=== PATIENT | female | born 1945 | race Caucasian/White ===

== ENCOUNTER 2025-05-04 07:33 | Day surgery (SDC) | payer OTHER, SELFPAY ==
[2025-04-21 08:47] VITALS: BMI 42.9
[2025-05-04] VITALS (13 sets, daily range): BP systolic 102–174; BP diastolic 56–77; PULSE 63–93; RESP 11–18; TEMP 35.5–36.7; O2SAT 93–100; BMI 42.6
--- NOTE | 2025-05-04 | DI.RAD.S_ITS ---
PROCEDURE: XR PELVIS 1-2V INDICATIONS: RIGHT TOTAL HIP INTEROP TECHNIQUE: Intra-operative view of the pelvis and hip acquired. COMPARISON: None. FINDINGS: Bones: Intraoperative devices prior to placement of arthroplasty prostheses are in expected positions. No fractures or suspicious bony lesions. Soft tissues: Overlying surgical retractors are present, along with other intraoperative changes. IMPRESSION: Unremarkable intraoperative right hip arthroplasty radiographs Approved by: Sundeep Pizarro M.D. on 05/04/2025 at 16:47
--- NOTE | 2025-05-04 06:00 | DI.RAD.S_ITS ---
PROCEDURE: XR HIP W PEL IF DONE RT 2V INDICATIONS: DANIELA TECHNIQUE: AP pelvis and lateral view of the hip acquired. COMPARISON: [facility], CR, XR PELVIS WITH LATERAL HIP RIGHT, 02/12/2025, 13:48. [facility], CR, XR PELVIS 1-2V, 05/04/2025, 12:05. FINDINGS: Bones: Patient is status post right total hip arthroplasty, with hardware components in expected positions. The hip joint appears congruent. The visualized bony structures appear intact. Remote prior left hip arthroplasty appears unchanged. Mildly sclerotic appearance of the sacroiliac joints bilaterally. Soft tissues: Overlying postoperative changes are noted. No suspicious soft tissue densities. IMPRESSION: Expected post-operative appearance of a right total hip arthroplasty. Approved by: Ze Ahmadi M.D. on 05/04/2025 at 14:20
--- NOTE | 2025-05-04 08:52 | SUR.OPER ---
Lateral on padded OR bed. Gel axillary roll. Arms secured on padded armboard with pillow supporting top arm. Padded hip positioner braces x4 - anterior and posterior chest and pelvis. Additional gel pad used anterior pelvis. Gel pad under bottom leg from knee to foot and secured with tape over sheet.
[2025-05-04] MEDS: VANCOMYCIN 1,000 MG/200 ML PIGGYBACK 200 MG IV (09:29)
[2025-05-04] MEDS: CELECOXIB 200 MG CAPSULE PO (09:29)
[2025-05-04] MEDS: ACETAMINOPHEN 325 MG TABLET 975 MG PO (09:29)
[2025-05-04] MEDS: LACTATED RINGERS 1,000 ML 42 ML IV (09:30)
[2025-05-04] MEDS: FAMOTIDINE 20 MG/2 ML VIAL IV (09:44)
--- NOTE | 2025-05-04 10:37 | PM.PREOP ---
Pre-operative Note Interval Note History & Physical reviewed/Exam performed by Physician: Yes Changes to H&P: No
--- NOTE | 2025-05-04 10:38 | P.OP_ITS ---
Operative Date/Time/Diagnoses Date of procedure: 05/04/25 Time of procedure: 11:10 Pre-op diagnosis: right hip OA Post-op diagnosis: same Procedure & Clinicians Procedure: Right total hip arthroplasty posterior approach Same procedure(s) as scheduled: Yes Indications: The patient has had progressively worsening right hip pain with radiographic changes consistent with arthritis. Non-operative management has failed and the patient has requested total hip replacement. The risks, benefits and alternatives to surgery were discussed with the patient prior to proceeding. Risks discussed included, but were not limited to, failure to relieve pain, leg length discrepancy, dislocation, stiffness, infection, nerve damage, deep venous thrombosis, pulmonary embolism, stroke, coma, heart attack, permanent paralysis and , as well as the potential need for eventual revision of the prosthetic. Surgeon: Nika Brandt Eviscerator: Philipp Martinez Anesthesia Type: General and Spinal Operative Notes Findings: Severe left hip OA with marked destruction of the acetabulum, soft but acceptable bone, adequate stability Closure Type: primary Specimen(s): none sent Prosthetic devices, grafts, tissues, transplants, or devices: Brandt and nephew R3 52, neutral poly liner, one 6.5 mm screw, polar stem stand miguel angel offset size 3 with collar, 36 x -3 cobalt chrome head Applied: none Estimated Blood Loss (mL): 250 Blood products transfused: none Procedure in detail: The patient was seen in the pre-operative area, where the patient identified the right hip as the operative site and this was marked with my initials. The patient received pre-operative antibiotics and was taken to the operating room and placed on the operative table in the left lateral decubitus position after satisfactory anesthesia. A night time babysitter out was performed. The right leg was prepared from the ankle to the iliac crest with ChloroPrep in the usual fashion and draped through sterile drapes. The PA was used during the procedure and was essential for intraoperative retraction and safe implantation of the components. The hip was approached through an approximately 24 cm incision centered over the greater trochanter and curving gently posteriorly as it went proximally. This was carried sharply to the fascia bryant, which was divided and retracted with a self retaining retractor. The trochanteric bursa was excised with care being taken to avoid the sciatic nerve, which was identified and protected throughout the case. The short external rotators were incised and the capsulomuscular flap was raised and tagged for later repair. The hip was dislocated, and a femoral neck osteotomy performed approximately 15 mm above the lesser trochanter. Retractors were placed around the femur. The canal was opened with a box cutting osteotome, followed by a T handled reamer and a lateralizing reamer. The starter broach was then used, followed by sequential broaching until there was good stability of the broach in the femur. Retractors were placed to expose the acetabulum. The labrum and central soft tissues were removed. Reaming was performed initially going up in 2 mm increments, then 1 mm increments until good bite was obtained with an odd sized reamer. The cup 1 mm larger than the last reamer was then inserted using the appropriate anteversion guides. It was further stabilized with a 6.5 mm screw. A trial neutral liner was placed. The broach was placed in the canal. A trial head and neck were then placed and the hip relocated and checked for leg length and stability. An intraoperative film confirmed the component position and no evidence of fracture. The patient was stable in the position of sleep, of squatting, and could be put through a range of motion with 45 degrees internal rotation without dislocation. At 90 degrees flexion, internal rotation to 70? was possible before dislocation. This was felt to be satisfactory and the appropriate components were opened, and the trials were removed. The acetabular liner was impacted into position. The final stem was then impacted into the prepared femoral canal. A brief Betadine soak was performed while trialing with head options. The hip was meticulously irrigated with normal saline. Finally the femoral head was impacted onto the stem. The acetabulum was cleared of all material and the hip relocated one final time. The capsulomuscular flap was then repaired to the greater trochanter though an awl hole using the tag sutures. The short external rotators were repaired with a nonabsorbable suture. The fascia bryant was closed with Vicryl. The subcutaneous layer was closed with barbed sutures and skin jason. A shen dressing was applied and the patient was taken to recovery having tolerated the procedure well. Complications: none Post-operative Condition: stable Disposition: Acute Care Plan for aftercare: The patient will be maintained on a standard total hip replacement protocol with weight bearing as tolerated and posterior hip precautions. The patient will receive Aspirin and sequential compression devices for DVT prophylaxis. The patient will be discharged home when safe for the home environment.
[2025-05-04] MEDS: TRANEXAMIC ACID 1,000 MG VIAL 1000 MG INJ ×2 (11:15→12:53)
[2025-05-04] MEDS: BUPivacaine 0.25% W/ EPI (PF) 30 ML VIAL 60 ML INJ (11:45)
[2025-05-04] MEDS: SODIUM CHLORIDE IRRIG SOLUTION 250 ML, EPINEPHrine 1 MG IRR (11:48)
--- NOTE | 2025-05-04 11:53 | SUR.OPER ---
DUE TO PATIENTS ALLERGY TO TOPICAL IODINE DR HILL ORDERED 4 OZ HYDROGEN PEROXIDE FOR WOUND APPLICATION DURING CLOSURE
--- NOTE | 2025-05-04 12:28 | SUR.OPER ---
ALL IMPLANTS CONFIRMED BY SURGEON BEFORE IMPLANTING
--- NOTE | 2025-05-04 15:03 | OT.IPNOTE ---
Checked with pt as just came up from sx. Pt states still groggy and not ready to get up. Notified nursing as pt needing to be changed. Able to give pt posterior hip folder and to check on pt tomorrow.
[2025-05-04] MEDS: ACETAMINOPHEN 325 MG TABLET 650 MG PO ×2 (15:48→19:51)
[2025-05-04] MEDS: LACTATED RINGERS 1,000 ML 100 ML IV (15:48)
--- NOTE | 2025-05-04 16:23 | PT-IP ANOTE ---
Pt eval order received. EMR reviewed. Checked on pt and pt stated that she is still numb on her legs and that she is not ready for PT. daughter in room and agreed to come in at ~ 9 am for possible caregiver training tomorrow.
[2025-05-04] MEDS: ONDANSETRON 4 MG ODT PO (16:42)
[2025-05-04] MEDS: DOCUSATE 100 MG CAPSULE PO (20:03)
[2025-05-04] MEDS: ASPIRIN EC 81 MG TABLET PO (20:03)
[2025-05-04] MEDS: INSULIN LISPRO 100 UNIT/ML 3ML VIAL SUBCUT (20:27)
[2025-05-05 04:31] LABS: Hematocrit 34.6 % (36-46); Hemoglobin 11.7 g/dL (12.0-16.0)
--- NOTE | 2025-05-05 07:30 | P.DS_ITS ---
History of Present Illness History of Present Illness Date Patient Seen: 05/05/25 Time Patient Seen: 07:31 Chief complaint: Right Total Hip Arthroplasty Narrative: She notes she was doing well minimal pain. Discharge Providers Provider Discharge Date: 05/05/25 Primary care physician: Angel Craft MD Consults: 05/04/25 06:00 Consult to Anesthesiology Routine Comment: Consulting Provider: Anesthesiologist Reason for consultation: Regional block for post operative pain control Has provider been notified: No 05/04/25 14:14 Consult to Discharge Planning Routine Comment: Consult to Occupational Therapy Evaluate & Treat Comment: Physician Instructions: Evaluate and treat Consult to Physical Therapy Evaluate & Treat Comment: Physician Instructions: post op DANIELA protocol Discharge provider: Nika Brandt MD Summary Hospital Course Discharge Diagnosis: Right hip OA. Right total hip arthroplasty Hospital Course: She underwent a right total hip arthroplasty. She tolerated the procedure without difficulty. She was mobilized with physical therapy and felt to be safe for discharge to home. Status at Discharge Cognitive/behavioral status at discharge: oriented Functional status at discharge: uses cane/walker Overall status at discharge: patient is progressing back to baseline Exam Vital Signs (past 8 hours): Oxygen Delivery Method Room Air Oxygen Flow Rate 0 Narrative Exam Narrative: She was alert she is oriented she is sitting in a chair she was resting calves are soft bilaterally her dressings intact she was able to fire toe flexors and extensors Objective Labs 05/05/25 04:06 Labs: Laboratory Results - last 24 hr 05/04/25 05/04/25 05/04/25 08:56 14:03 16:46 Hgb Hct POC Whole Bld Glucose 128 H 164 H 179 H 05/04/25 05/05/25 20:11 04:06 Hgb 11.7 L Hct 34.6 L POC Whole Bld Glucose 214 H [facility] Medical History (Updated 04/27/25 @ 09:51 by Emiliana Pradhan RN) Anemia History of recurrent UTIs CKD (chronic kidney disease) stage 3, GFR 30-59 ml/min Hearing loss Osteoarthritis HLD (hyperlipidemia) Hyperkalemia due to angiotensin converting enzyme inhibitor (NALDO-I) Edema History of anemia HTN (hypertension) Diabetes type 2 Surgical History (Updated 04/21/25 @ 08:59 by Emiliana Pradhan RN) Hx of tonsillectomy Hx of colonoscopy Hx of bilateral cataract extraction (2013) Hx of umbilical hernia repair History of hysterectomy History of History of total left hip replacement (09/12/15) Social History household members: none Smoking Status: Never smoker alcohol intake: never Discharge Assessment & Plan Assessment and Plan Assessment: Doing well after right total hip arthroplasty. Plan of Treatment: Discharge to home. Discharge Plan Discharge Plan Patient Disposition: Home Provider Discharge Comment: DC pending PT approval Discharge orders & Medications Discharge Orders: Discharge (Order); Ordered 05/05/25 Ordered By: Nika Brandt Prescriptions: Continued atorvastatin 80 mg tablet 80 mg PO DAILY acarbose 50 mg tablet 50 mg PO 3XD Rx Instructions: with meals amlodipine 5 mg tablet 5 mg PO DAILY calcitriol 0.25 mcg capsule 0.25 mcg PO QMWF glipizide 10 mg tablet extended release 24hr 10 mg PO QAM Jardiance 10 mg tablet 10 mg PO DAILY ferrous sulfate 325 mg (65 mg iron) tablet 325 mg PO DAILY torsemide 10 mg tablet 10 mg PO DAILY PRN (Reason: edema) Changed aspirin [Adult Low Dose Aspirin] 81 mg tablet,delayed release (DR/EC) 81 mg PO BID Qty: 90 0RF Follow up/Referrals: Angel Craft MD [Primary Care Provider, Family Practice] Diet/Activity/Treatments Diet: Diet as Tolerated Activity: Weightbear as tolerated. Ambulate with assistive devices. Avoid falls. Avoid high hip flexion. Cold/Heat Therapy: Ice for up to 20 minutes over surgical site every hour. Skin/Wound/Dressing Care Skin care: Okay to shower. Report to your healthcare provider any signs of infection, such as:: chills, fever, night sweats, increased pain, unusual drainage and unusual redness Dressing: Keep dressing clean and dry. If if dressing becomes dirty or disrupted change. Visit Report/Discharge Packet Instructions: DI for Hip Replacement, DI for Prescription Opioid Use Stand Alone Forms: Patient Portal/API, Surgery Discharge Print Language: Cameroonian Discharge Data Primary Care Provider: Angel Craft Attending Provider: Nika Brandt
[2025-05-05] MEDS: ACETAMINOPHEN 325 MG TABLET 650 MG PO (07:57)
[2025-05-05 08:00] VITALS: BP 142/73; PULSE 64; RESP 16; TEMP 36.2; O2SAT 98
[2025-05-05] MEDS: FERROUS SULFATE 325 MG TABLET PO (08:05)
[2025-05-05] MEDS: ATORVASTATIN 20 MG TABLET 80 MG PO (08:05)
[2025-05-05] MEDS: ASPIRIN EC 81 MG TABLET PO (08:06)
[2025-05-05] MEDS: DOCUSATE 100 MG CAPSULE PO (08:06)
--- NOTE | 2025-05-05 08:35 | CM.DANOTE ---
Initial DCP Assessment Note. Review EMR and PT Interview. Met with patient at bedside to discuss discharge needs.PT is alert x 4 sitting up in chair. No acute distress. Patient lives independently with DME alone in her own home. PT's Brittney beebe, from [place] will be transporting PT home upon discharge and will be staying with PT for the next 10 days. Payor: SARAI Suárez PCP: Angel Fay Summary & Plan: Post OP Elective Right total Hip Replacement. Plan: discharge to home today after Physical Therapy eval Discharge Planning/Care Management CM Discharge Assessment Start: 05/04/25 14:18 Freq: Status: Active Protocol: Document 05/05/25 08:29 SM (Rec: 05/05/25 08:33 SM [id number]) Discharge Planning Assessment Assigned Discharge Shauna SOMMER CM Child Welfare Social Worker Provider Dr. Brandt [facility],Medicare Advance Directives? Yes Advance Directives No on File History Provided By Patient Has Patient been No admitted in last 30 days? Prior Living House Arrangements Comment PT's Brittney beebe, will be staying with PT for the next 10 days. Household Members none Type of Drives own vehicle transporation used prior to admit Needs Assistance Bathing,Grooming,Meal Prep,Home Chores / Shopping With Caregiver for No Another DME Already Rented / Bath Bench,FWW / Walker,Cane Owned Barriers to No Discharge Discharge Plan Home Transportation Brittney beebe, will transport home. # [phone] Arrangement Referrals Initiated None needed Review Status In Process Please Provide Date 05/05/25 Initial DC Assessment Was Performed Next Review Type Continued Stay Review Pre-Anesthesia Assessment Start: 04/21/25 08:47 Freq: Status: Active Protocol: Document 04/21/25 08:47 CAB (Rec: 04/21/25 09:33 CAB [id number]) Pre-Anesthesia Assessment PAC Comment Phone assess 04/21/25 Patient Information Phone Assessment Reviewed Via Assessment Completed Patient With Diagnostic Results BMP/CMP,CBC,EKG Comment Outside labs/EKG Primary Care Angel Craft Provider Seen Specialist in Yes Last 12 Months Specialist Seen Cra Officer,Orthopedist Comment Nephrology visit 04/23/25 scanned and in surgery folder Primary Language Yemeni Corporate Planning Manager Required No Height 162.56 cm Weight 113.398 kg Body Mass Index (BMI 42.9 ) Hearing Ability Hearing Impaired,Use of Hearing Aid Visual Assist Glasses Barriers to Learning Visual Hx Anesthesia No Reactions Hx Family Anesthesia No Reaction Hx Malignant No Hyperthermia Hx Blood No Transfusions Anesthesia Review No Requested Business Database Analyst No alcohol intake never Smoking Status Never smoker Substance Use Type [ does not use #R] Pain Present Pain Reported Musculoskeletal Abnormal Gait,Difficulty Walking,Joint Pain Symptoms History of Falling ( Yes Recent or History of ) Patient is No completely paralyzed or completely immobile Prosthesis or Front Wheel Walker Orthotic Device Mental Status Oriented to own ability Is patient on oxygen No ? Does patient have No CALDERON/SOB Hx Sleep Apnea No Currently Taking a No Beta Laura Can You Climb a Yes Flight of Stairs Without SOB Hx Chest Pain No Hx SOB No Hx Syncope or No Dizziness Anti-Coagulant No Therapy Has a Rodding Machine Tender No Cardiac Testing No Hx Pacemaker/ICD No Pacemaker Rep No Required? Cardiac Clearance No Received Dysphagia No Gastrointestinal None Symptoms Bladder Pattern Urgency Urinary Catheter No Present Hx Urinary Self No Catheterization Diabetes Yes HgbA1C 6.9 Date 02/15/25 Patient No Lactating No Hx Drug Resistant No Organism Presence of external Yes: Left hip prosthesis, bilat eye IOLs, hearing aids or internal medical devices? Marital Status / Lives With none Current Living House Arrangements Number of Floors ( Two Floors Floors) Support System Child/Children Does the Patient Yes: Daughter will stay w/pt to assist with care at [place] Have Assistance After Surgery Patient Discharge Return Home Plan Description Comment Pt advised same day surgery per surgeon Feels Safe in Yes Current Environment Been Physically Hurt No or Threatened By a Person in Current Environment Do you have thoughts None of harming yourself or others? Are you currently No considering suicide? Do you have a plan No Plan to hurt yourself or others? Do You Have Any No Spiritual Beliefs That May Affect Your HC Choices? Do You Have Any No Cultural Practices That May Affect Your HC Choices? Comment [employer] Who Can We Speak to Family, friends About Patient's Care Identifying Code for Declines to issue Release of Patient Information Health Care Proxy/ Bess (daughter) Wang (son) Next of Kin Health Care Proxy Bess: [phone] Wang: [phone] Phone Number Emergency Contact Bess (daughter) Wang (son) Name Emergency Contact Bess: [phone] Wang: [phone] Phone Number Advance Directives? Yes Advance Directives No on File Requested Patient Yes Bring Advanced Directives DOS Power of Evening Anchor Yes Power of Evening Anchor Bess (daughter) Wang (son) Name Power of Evening Anchor Bess: [phone] Wang: [phone] Phone Number PAC Instructions Assistance for 24 hours post-op,Diabetes instructions, Do not shave/clip surgical site,Durable medical equipment,Medications to take/avoid,Nasal antibiotic,No ETOH/petroleum product on skin DOS,NPO,Post-op transportation,Pre-surgical wash,Sturdy shoes/ comfortable clothes,Do not bring valuables and remove jewelry
--- NOTE | 2025-05-05 08:50 | PT.IIE ---
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) Hx of bilateral cataract extraction (2012) Hx of colonoscopy Hx of tonsillectomy Hx of umbilical hernia repair Medical History (Last Updated 04/27/25 @ 09:51 by Emiliana Pradhan RN) Anemia CKD (chronic kidney disease) stage 3, GFR 30-59 ml/min Diabetes type 2 Edema Hearing loss History of anemia History of recurrent UTIs HLD (hyperlipidemia) HTN (hypertension) 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 Prior Functional Pt's daughter to stay with her for 10 days to assist. Level (Other details ) Social History Household Members none Living Arrangements House Number of Floors ( One Floor Floors) Number of Stairs To 3 steps with wide bilateral rails and can only hold on Enter/Railing? to just one rail at a time Home Environment Standard Height Toilet,Walk in Shower,Built-In Shower Seat Home Equipment Front Wheel Walker,Four Wheel Walker,Bedside Commode, Raised Toilet Seat w/Armrests,Hand Held Shower,Artist Representative, Grab Bars In Shower Additional Social pt's daughter will stay with her for ~ 2 weeks to History Comment assist pt pt sleeps on her lift recliner chair M2 PT-IP Current Condition Start: 05/05/25 13:16 Freq: NEEDED Status: Active Protocol: Document 05/05/25 08:50 AB (Rec: 05/05/25 13:33 AB [id number]) Physical Therapy Current Condition Current Condition Evaluation Date 05/05/25 Treatment Diagnosis s/p R DANIELA posterior; difficulty in walking Onset Date 05/04/25 M3 PT-IP Subjective Start: 05/05/25 13:16 Freq: NEEDED Status: Active Protocol: Document 05/05/25 08:50 AB (Rec: 05/05/25 13:33 AB [id number]) Subjective Physical Therapy Visit Type Type Initial Evaluation Visit Start Time 08:50 Visit Stop Time 10:20 Notes talked to ortho doctor yesterday and clarified with dr. garces regarding hip precautions and agreed to no more than 90 deg of hip flexion and not 70 deg. Number of CALL CENTER REPRESENTATIVE Visits 0 Physical Therapy Visit Comments Patient Comments agreeable to do PT Therapy Pain Assessment Pain When Pain Assessed At Rest Pain Present Pain Present Pain Reported Location Right Hip Intensity 2 Scale Used Numeric (0 - 10) Pain Management Distraction,Modification of Treatment,Re-positioning, Techniques Timing of Activity with Medications M4 PT-IP Mobility and Gait Start: 05/05/25 13:16 Freq: NEEDED Status: Active Protocol: Document 05/05/25 08:50 AB (Rec: 05/05/25 13:33 AB [id number]) PT-Transfer Assessment Sit to and From Stand Sit to and from Minimal Assistance,1 Person Assistance,Use of Upper Stand Extremities Equipment Transfer Assistive Gait Belt,Front Wheeled Walker Device Orthotic/Prosthetic No Devices or Brace: Transfers Transfer Destination Bed Transfer Technique ambulated Transfer Ability Level of Assist Contact Guard Assistance,1 Person Assistance,Use of Upper Extremities Comments Mobility Comments pt sitting on the chair and daughter in room with pt. obtained PLOF and home set up. educated pt and daughter regarding R hip posterior precautions. pt able to recall precautions. sit to stand from chair min A and max cues for techniques and precautions. pt presents with increase R LE IR and ankle inversion. cued to correct. pt sat back on chair and mod A for controlled descent to chair. educated pt on safety and techniques for sit to stand. caregiver training. educated daughter on how to use safety belt and how to assist pt. daughter was able to put safety belt on. assisted pt with sit to stand and pt ambulated in the hallway using FWW ~ 75 ft CGA. stair climbing training: educated pt and daughter on how to complete stairs. pt completed up/down steps holding on to R rail with B hands mod A and max cues. pt completed 2 sets requiring max cues. pt can be impulsive and decrease carryover with safety and precautions. assisted pt back to her room. sit to stand from w/c min A and max cues and ambulated to the chair using fWW CGA. educated pt on sit<>stand techniques: pt completed sit< >stand x 3 sets min A and max cues. positioned pt on the chair. call light and table placed within reach. pt and daughter without further concerns. Gait Assessment Gait Gait Assistance Contact Guard Assist Required: Distance (Feet) 75 Able to Maintain Yes Weight Bearing Status During Gait Assistive Devices Assistive Device Gait Belt,Front Wheeled Walker Orthotic/Prosthetic No Devices or Brace: Gait Deviations General Gait Pattern Decreased Stride Length,Decreased Feet Clearance Factors Limiting Gait Function Factors Limiting Decreased Activity Tolerance,Decreased Strength, Gait Function Difficulty Following Directions,Limited Range of Motion ,Pain,Poor Balance,Poor Safety Awareness Stair Climbing Assessment Evaluation Level of Assist On Moderate Assistance Stairs Devices Stair Climbing Right Railing Assistive Devices Technique/Endurance Stair Climbing Ascend and Descend Direction Stair Climbing Step to Step Technique Number of Steps 3 Climbed Query Text: Stair Climbing Set # 2 Repetitions (reps) PT-Balance Assessment Sitting Balance and Reactions Static Sitting Normal Balance Ability Dynamic Sitting Good Balance Ability Standing Balance and Reactions Static Standing Fair Balance Ability Dynamic Standing Fair Balance Ability Device Used FWW M5 PT-IP Objective Assessments Start: 05/05/25 13:16 Freq: NEEDED Status: Active Protocol: Document 05/05/25 08:50 AB (Rec: 05/05/25 13:33 [id number]) Orientation Orientation/Cognition Level of Alertness Alert Orientation Name,Place,Situation Language Function Hard of Hearing Ability Safety Awareness Decreased Safety Awareness Memory Description Short Term Impaired,Snf Impaired Gross Range of Motion Lower Extremity ROM Assessment Within Functional Limits Strength Lower Extremity Strength Assessment Right Impaired Hip 3+/5 Knee 4-/5 Muscle Tone Muscle Tone WNL Yes M6 PT-IP Treatment Start: 05/05/25 13:16 Freq: NEEDED Status: Active Protocol: Document 05/05/25 08:50 AB (Rec: 05/05/25 13:33 [id number]) Physical Therapy Treatment Education Education Provided Precautions,Weight Bearing Status,Post-Op Packet,Safety M7 PT-IP Assessment and Plan Start: 05/05/25 13:16 Freq: NEEDED Status: Active Protocol: Document 05/05/25 08:50 AB (Rec: 05/05/25 13:33 AB [id number]) PT Summary Assessment and Plan Potential Rehabilitation Good Potential Status of Condition Evolving at Evaluation Summary Impairments Pain,ROM,Strength,Balance,Coordination,Sensation,Tone, Cognition,Bed Mobility,Transfers,Gait,Activity Tolerance Assessment Summary pt is a 80 y/o F s/p R DANIELA posterior approach POD 1. pt with R hip posterior precautions and is WBAT. caregiver training conducted and daughter was able to assist pt with mobility. pt able to recall hip precautions but is impulsive affecting carryover of precautions during mobility and needing cues for safety with all tasks. Goals Bed Mobility Goal Independent Transfer Goal Independent,Front Wheeled Walker Gait Goal Independent,Front Wheel Walker Gait Distance 200 Other Goals up/down 3 steps 1 rail SBA Days to Meet Goals 5 Frequency of Treatment Frequency Of Twice a Day Treatment Treatment Plan Physical Therapy Bed Mobility Training,Transfer Training,Gait Training, Treatment Plan Therapeutic Exercise,Balance Retraining,Post Op Education,Discharge Planning,Hot or Cold Pack, Neuromuscular Re-ed,Coordination Retraining,Manual Therapy Precautions Posterior Hip No Hip Flexion > 90 degrees,No Hip Internal Rotation,No Precautions Hip Adduction Weight Bearing Status Weight Bearing Weight Bear as Tolerated Status Allowed Weight RLE WBAT Bearing Amount ( enter % or #) (%) Recommendations To Nursing Amount of Assist 1 Person Assist Needed Discharge Recommendations PT Discharge Home with 11/03 Assist Available,Outpatient PT Recommendations Transportation Needs Private Vehicle at Discharge - PT assist 1
--- NOTE | 2025-05-05 11:30 | OT.IP.EVAL ---
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) Osteoarthritis Surgical History (Last Updated 04/21/25 @ 08:59 by Emiliana Pradhan, RN) History of History of hysterectomy 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 Living and IADL's Prior Functional Pt's daughter to stay with her for 10 days to assist. Level (Other details ) Social History Household Members none Living Arrangements House Number of Floors ( One Floor Floors) Number of Stairs To 3 steps with wide bilateral rails. Enter/Railing? 1 step to the living room. Home Environment Standard Height Toilet,Walk in Shower,Built-In Shower Seat Home Equipment Front Wheel Walker,Straight Cane,Bedside Commode,Hand Held Shower,Long Handled Shoe Horn,Middle Stitcher,Sock Aid, Grab Bars In Shower M2 OT-IP Current Condition Start: 05/05/25 12:08 Freq: Status: Active Protocol: Document 05/05/25 12:09 [facility] (Rec: 05/05/25 12:27 [facility] Desktop) Occupational Therapy Current Condition Current Condition Evaluation Date 05/05/25 Treatment Diagnosis S/P R DANIELA posterior Diagnosis Onset Date 05/04/25 Post Operative Precautions Posterior Hip No Hip Flexion > 90 degrees,No Hip Internal Rotation,No Precautions Hip Adduction M3 OT- IP Subjective and Pain Start: 05/05/25 12:08 Freq: Status: Active Protocol: Document 05/05/25 12:09 [facility] (Rec: 05/05/25 12:27 [facility] Desktop) OT- Subjective Occupational Therapy Visit Type Type Initial Evaluation Visit Start Time 10:50 Visit Stop Time 11:30 Occupational Therapy Visit Comments Patient Comments Pt's daughter agreed to do caregiver training for ADL and mobility needs. Patient/Caregiver TO go home. Goals OT Pain Assessment Pain When Pain Assessed At Rest Pain Present Pain Present Pain Reported Location Right Hip Intensity 1 Scale Used Numeric (0 - 10) M4 OT- IP ADL's Start: 05/05/25 12:08 Freq: Status: Active Protocol: Document 05/05/25 12:09 [facility] (Rec: 05/05/25 12:27 [facility] Desktop) OT ADL-Grooming General Evaluation Areas Needing Retrieving/Set-up of Grooming Items Assistance Comments OT Grooming Comments Pt able to wash her hands while at the sink. VC to keep the FWW in front of her as pushing it to the side. OT ADL-Oral Care Comments Oral Care Comments Pt refused. OT ADL-Dressing General Eval Upper Body Dressing Standby Assistance Ability Lower Body Dressing Minimal Assistance Ability Areas Needing Socks,Shoes Assistance Assistive Devices Dressing Assistive Long Handled Shoe Horn,Middle Stitcher,Sock Aid Devices Comments OT Dressing Comments Pt's daughter able to remind pt to sit down to jarrod her bra for safety. Pt needing use of sock aid for socks and assist to help get on her shoes while seated. Pt states usually donns her shoes while standing. Pt would benefit from slip on shoes for safety and put her shoes on while seated on a higher surface. OT ADL-Toileting Comments OT Toileting Pt's daughter able to safely assist pt for toileting Comments needs. Cued best to stand and wipe and would also benefit from a bidet, toilet paper aid, or assist. OT ADL-Bathing Comments OT Bathing Comments Pt will benefit from a shower chair as the built in seat is too low. Also to get assist from a friend to help shower after her daughter goes back to [place] in 10 days. M5 OT- IP IADL's Start: 05/05/25 12:08 Freq: Status: Active Protocol: Document 05/05/25 12:09 [facility] (Rec: 05/05/25 12:27 [facility] Desktop) OT-Instrumental Activities of Daily Living Home Safety Awareness Home Safety Comments Pt needing lots of reminders to incorporate her hip precautions and not to rolling right leg during ADL and mobility needs. Medication Management Medication Best to have supervision at this time as pt not Management Comments thinking well at this time. Money Management Money Management Pt will benefit from assist. Comments Meal Preparation Meal Preparation Pt's daughter to assist. Comments Construction Safety Consultant Construction Safety Consultant Pt's daughter to assist. Comments M6 OT- IP Functional Cognition Start: 05/05/25 12:08 Freq: Status: Active Protocol: Document 05/05/25 12:09 [facility] (Rec: 05/05/25 12:27 [facility] Desktop) Cognitive Factors Limiting Selfcare Function Cognitive Ability Level of Alertness Alert Patient Orientation Name,Place,Situation Attention Span Capable of Focused Attention,Capable of Sustained Ability Attention Ability to Follow Able to Follow One Step Commands with Increased Time, Commands Able to Follow One Step Commands with Repetition Memory Description Short Term Impaired Safety Awareness Decreased Recall of Precautions,Decreased Ability to Apply Precautions,Underestimates Need for Assistance Cognitive Comments Cognitive Assessment Pt needing MAX vc to recall and incorporate her hip Comments precautions for ADL and mobility needs. Pt's tends to roll in her leg and needing cues to stop. Pt's daughter having to physically stop pt as pt has the habit of rolling her right leg inwards during dressing, toileting , and transitions. OT- Vision and Hearing OT- Vision Assessment Visual Acuity Glasses For Reading Visual Attentiveness WFL Occular Pursuits WFL M7 OT- IP Mobility and Balance Start: 05/05/25 12:08 Freq: Status: Active Protocol: Document 05/05/25 12:09 [facility] (Rec: 05/05/25 12:27 [facility] Desktop) OT-Transfer Assessment Sit to and From Stand Sit to and from Contact Guard Assistance Stand Transfers Transfer Ability Contact Guard Assistance Technique Transfer Destination Chair,Toilet Transfer Technique Stand Step Pivot Devices Transfer Assistive Gait Belt,Front Wheeled Walker Devices Comments Mobility Comments MAX vc to slide her RLE forwards prior to standing and sitting. CGA to stand and CGA to close SBA with the FWW . Pt's daughter able to safety jarrod/doff the gait belt and assist pt for mobility needs. OT- Balance Assessment Sitting Balance and Reactions Static Sitting Normal Balance Ability Dynamic Sitting Good Balance Ability Standing Balance and Reactions Static Standing Fair Balance Ability Dynamic Standing Fair Balance Ability M8 OT- IP Objective Assessments Start: 05/05/25 12:08 Freq: Status: Active Protocol: Document 05/05/25 12:09 [facility] (Rec: 05/05/25 12:27 [facility] Desktop) OT Gross Range of Motion Upper Extremity Range of Motion ROM Impairments WFL for ADL needs. OT Strength Comments Strength Comments WFL for needs. M9 OT- IP Assessment and Plan Start: 05/05/25 12:08 Freq: Status: Active Protocol: Document 05/05/25 12:09 [facility] (Rec: 05/05/25 12:27 [facility] Desktop) OT Summary Assessment and Plan Potential Rehabilitation Good Potential Analytic Complexity Low at Evaluation Summary OT Impairments Pain,Balance,Functional Cognition,Functional Mobility, Dressing,Toileting,Bathing,Toilet Transfers,Shower Transfers Progress Towards Progressing Toward Goals Goals Assessment Summary Pt low complexity and main barriers are pt'e decreased ability to recall and follow her hip precautions. Pt's daughter has been trained and safe to be able to assist pt with incorporation of her hip precautions for all needs. Pt to go home with 24/7 assist and home health. Goals Self-Feeding Goal Independent Grooming Goal Independent Dressing Goal Independent,Long Handled Shoe Horn,Middle Stitcher,Sock Aid Toileting Goal Independent Bathing Goal Standby Assistance Toilet Transfer Goal Independent Shower Transfer Goal Standby Assistance Days to Meet Goals 7 Frequency of Treatment Other frequency 5x/week Treatment Plan OT Treatment Plan ADL Training,Functional Cognition Training,Functional Mobility,Patient/Family Education,Discharge Planning Discharge Recommendations OT Discharge Home with 24/7 Assist Available,Outpatient PT Recommendations Home Equipment Needs Slip on shoes, shower chair Transportation Needs Private Vehicle at Discharge
--- NOTE | 2025-05-05 12:00 | PC.NURSE ---
Discharge note: Pt alert and oriented. IV out. Discussed medications, pain, s/s of infection, follow up and when to be seen. No further questions. Patient wheeled out to private vehicle by PCT via wheelchair.
== END 2025-05-05 12:02 | disposition home or self-care (01) ==
LOC: OR 07:39 → AC 14:15
PROVIDERS: PCP Family Medicine; Referring Provider Family Medicine; Visit Provider Orthopaedic Surgery
PROC: 0SR90JZ Replacement of Right Hip Joint with Synthetic Substitute, Open Approach (ICD-10-PCS; CPT 27130; principal; 2025-05-04 10:15)
DX: M16.11 Unilateral primary osteoarthritis, right hip (principal)
CPT/HCPCS: 27130; 36415; 72170; 73502; 82962; 85014; 85018; 97162; 97165; 97530; 97535; C1776; C1713; J0165; J0666; J0689; J1100; J1815; J2405; J2704; J3375